=== PATIENT | female | born 1960 | race Caucasian/White ===

== ENCOUNTER 2021-11-27 13:21 | Emergency (ER) | payer MEDICAID ==
--- NOTE | 2021-11-27 13:43 | ED Physician Documentation ---
PD HPI BACK PAIN - Stated complaint Stated Complaint: BACK/EAR/SHOULDER PX - Chief complaint Chief Complaint: General - History obtained from History obtained from: Patient - History of Present Illness Timing - onset: How many months ago (Add thoracolumbar pain since July after fall down stairs. She states she was seen in the ER with normal CT scans, not showing any fractures. She was hospitalized for a week due to electrolyte problems and dehydration from an intestinal problem. Diagnosed with celiac disease. No new injury.) Timing - duration: Months Timing - details: Abrupt onset, Still present, Waxing and waning (worse the past week, same area as prior pains.) Location: Mid, Lower, Right Quality: Pain, Aching. No: Spasm Associated symptoms: No: Fever, Weakness, Numbness Worsened by: Movement, Twisting Contributing factors: Trauma (initially in July 2021, with pain persistent in varying degrees.), Other (moved here from [place] 1 1/2 weeks ago, she is establishing primary care with appt in couple of weeks.) Recently seen: Not recently seen Review of Systems Constitutional: denies: Fever, Chills Eyes: reports: Decreased vision (due to cataracts, no abrupt new change.) Ears: reports: Ear pain (both ears with feeling pressure/pain for several days). denies: Drainage/discharge Nose: reports: Sinus pressure / pain. denies: Rhinorrhea / runny nose Throat: denies: Sore throat Respiratory: denies: Cough GI: denies: Abdominal Pain, Nausea, Vomiting Skin: denies: Rash, Lesions Musculoskeletal: reports: Other (left shoulder pain anterior with ROM. No noted injury. onset a week ago and persists. Feels okay when rested.) PD PAST MEDICAL HISTORY - Past Medical History Cardiovascular: Hypertension, [place] Respiratory: None Neuro: CVA Endocrine/Autoimmune: None HEENT: Other (cataracts and is scheduling for surgery in February. ) - Present Medications Home Medications: Ambulatory Orders Medication Instructions Recorded Confirmed Cetirizine [ZyrTEC] 10 mg PO DAILY 15 Days #15 tablet 11/27/21 Fluticasone Propionate 1 spray NS BID 20 Days #1 bottle 11/27/21 Meloxicam [Mobic] 7.5 mg PO BID 10 Days #20 tablet 11/27/21 oxyCODONE [Roxicodone] 5 mg PO Q6H PRN #15 tablet 11/27/21 - Allergies Allergies/Adverse Reactions: Allergies Allergy/AdvReac Type Severity Reaction Status Date / Time iodine Allergy Anaphylaxis Verified 11/27/21 13:34 shellfish derived Allergy Anaphylaxis Verified 11/27/21 13:34 - Living Situation Living Arrangement: reports: At home PD ED PE NORMAL - Vitals Vital signs reviewed: Yes - General General: Alert and oriented X 3, Well developed/nourished - HEENT HEENT: Atraumatic, Pharynx benign (edentulous without gum swelling/tenderness. ). No: Ears normal (TMs with some fluid behind but not red/inflammed. ) - Neck Neck: Supple, no meningeal sign, No adenopathy - Cardiac Cardiac: RRR, No murmur - Respiratory Respiratory: Clear bilaterally - Abdomen Abdomen: Soft, Non tender - Back Back: No CVA TTP, No spinal TTP, Other (tender right paralumbar at about thoracolumbar level. No rash nor sores. ) - Derm Derm: Normal color, Warm and dry - Extremities Extremities: No edema, Other (left shoulder with mild tenderness anterior. Not tender at AC. SHe has full ROM of the shoulder with pain mostly elicited reaching behind herself (toward back pocket) and abduction to 90 degrees with some resistance (apprehension test). ) - Neuro Neuro: Alert and oriented X 3, No motor deficit, No sensory deficit, Normal speech Results - Vitals Vitals: Vital Signs - 24 hr 11/27/21 11/27/21 13:27 15:33 Temperature 36.7 C Heart Rate 72 60 Respiratory 16 19 Rate Blood Pressure 142/70 H 139/70 H O2 Saturation 100 99 Oxygen O2 Source Room air - Labs Labs: Laboratory Tests 11/27/21 11/27/21 14:35 14:35 WBC 3.1 L RBC 4.46 Hgb 13.2 Hct 40.9 MCV 91.7 MCH 29.6 MCHC 32.3 RDW 12.2 Plt Count 242 MPV 10.3 Neut # (Auto) 1.7 Lymph # (Auto) 0.8 L [place] # (Auto) 0.4 Eos # (Auto) 0.2 Baso # (Auto) 0.1 Absolute Nucleated RBC 0.00 Nucleated RBC % 0.0 Sodium 128 L Potassium 5.0 Chloride 97 L Carbon Dioxide 24 Anion Gap 7.0 BUN 9 Creatinine 0.5 Estimated GFR (MDRD) 125 Glucose 97 Calcium 9.3 Magnesium 2.2 Total Bilirubin 0.7 AST 58 H ALT 69 H Alkaline Phosphatase 147 H Total Protein 7.8 Albumin 4.3 Globulin 3.5 Albumin/Globulin Ratio 1.2 Lipase 28 PD MEDICAL DECISION MAKING - ED course Complexity details: considered differential (Chronic back pain without any new injury nor any red flag neurologic symptoms. She had had prior problems with electrolyte problems and is on diuretic. We can check electrolytes and blood count at this time as well), d/w patient ED course: Here primarily with exacerbation of back pain that she has had since July. While here she also comments on left shoulder pain that is new in the last week and also sinus congestion and ear fullness for the last week or so as well. She is new to the area and setting up primary care states she has had problems with liver enzymes and electrolyte disorder in the past and was wondering about those. We can check those as well. Departure - Departure Disposition: Home, Self Care Clinical Impression: Lumbar back pain, Hyponatremia, Elevated liver enzymes Left shoulder strain Qualifiers: Encounter type: initial encounter Qualified Code(s): S46.912A - Strain of unspecified muscle, fascia and tendon at shoulder and upper arm level, left arm, initial encounter Serous otitis media Qualifiers: Chronicity: acute Laterality: bilateral Recurrence: non-recurrent Qualified Code(s): H65.03 - Acute serous otitis media, bilateral Condition: Stable Record reviewed to determine appropriate education?: Yes Instructions: ED Neck Back Pain General Prescriptions: Fluticasone Propionate 1 spray NS BID 20 Days #1 bottle Meloxicam [Mobic] 7.5 mg PO BID 10 Days #20 tablet oxyCODONE [Roxicodone] 5 mg PO Q6H PRN #15 tablet PRN Reason: Pain Cetirizine [ZyrTEC] 10 mg PO DAILY 15 Days #15 tablet Comments: Shoulder pain sounds likely to be some rotator cuff irritation/tendinitis. Avoid heavy lifting, push pull or overhead reaching with that shoulder. That along with anti-inflammatories should be helpful for it. For your low back, we can add some anti-inflammatories (I wrote a prescription for meloxicam) regularly for the next 7 to 10 days. To that add oxycodone every 6 hours if needed for worse pain. Continue your other usual medications. Ears show fluid behind the eardrums but they do not look acutely infected per se. I would try antihistamines and steroid nasal spray and see if that improves drainage. Your blood test show mildly low sodium level of 128. This is not too bad and I would continue usual medications including your diuretic and follow-up with your new primary care as planned. Your blood tests also showed some mild elevation of the liver enzymes and so would make sense to avoid Tylenol as a pain medicine for now. Follow-up with your primary care. I transmitted needed your prescriptions to [facility] pharmacy. My narcotic instructions I am prescribing a short course of narcotic pain medication for you. These are potentially dangerous and addictive medications that should be used carefully. These medications may constipate you. Take an jmmq-nsr-wfuzbcc stool softener such as docusate twice daily with plenty of water while taking these medica tions. If you go 24 hours without a bowel movement, take prro-fsm-gmqfdwv MiraLAX, per package instructions. Do not drink or drive while taking these medications. If you received narcotic or sedating medications while in the emergency department do not drive for 24 hours. Store this medication in a safe, secure place and out of reach of children. It is a violation of federal law to give or sell this medication to another person or to use in a manner other than prescribed. The ED will not refill narcotic prescriptions, including prescriptions lost or stolen. You can dispose of unwanted medications at the [facility]'s office or at several pharmacies such as [facility]. Discharge Date/Time: 11/27/21 15:35
[2021-11-27] MEDS ORDERED: NAPROXEN 250 MG TABLET PO STA (14:14)
[2021-11-27] MEDS ORDERED: oxyCODONE 5 MG TABLET PO STA (14:14)
[2021-11-27] MEDS ORDERED: DEXAMETHASONE 10 MG/ML VIAL PO STA (14:14)
[2021-11-27] MEDS ORDERED: CHERRY SYRUP 10 ML UDC PO ONE (14:14)
[2021-11-27] MEDS ORDERED: CETIRIZINE 10 MG TABLET PO STA (14:15)
[2021-11-27 14:39] LABS: BASOPHILS # (AUTO) 0.1 10^3/uL (0.0-0.1); BASOPHILS % (AUTO) 1.6 %; EOSINOPHILS # (AUTO) 0.2 10^3/uL (0.0-0.7); EOSINOPHILS % (AUTO) 7.1 %; HCT - HEMATOCRIT 40.9 % (37.0-47.0); HGB - HEMOGLOBIN 13.2 g/dL (12.0-16.0); LYMPHOCYTES # (AUTO) 0.8 10^3/uL (1.5-3.5); LYMPHOCYTES % (AUTO) 24.1 %; MEAN CORPUSCULAR HEMOGLOBIN 29.6 pg (27.0-31.0); MEAN CORPUSCULAR HGB CONC 32.3 g/dL (32.0-36.0); MEAN CORPUSCULAR VOLUME 91.7 fL (81.0-99.0); MEAN PLATELET VOLUME 10.3 fL (7.9-10.8); MONOCYTES # (AUTO) 0.4 10^3/uL (0.0-1.0); MONOCYTES % (AUTO) 11.3 %; NEUTROPHILS # (AUTO) 1.7 10^3/uL (1.5-6.6); NEUTROPHILS % (AUTO) 55.6 %; PLT - PLATELET COUNT 242 10^3/uL (130-450); RED BLOOD COUNT 4.46 10^6/uL (4.20-5.40); RED CELL DISTRIBUTION WIDTH 12.2 % (12.0-15.0); WHITE BLOOD COUNT 3.1 x10^3/uL (4.8-10.8)
[2021-11-27 14:53] LABS: ALBUMIN 4.3 g/dL (3.2-5.5); ALBUMIN/GLOBULIN RATIO 1.2 (1.0-2.2); BILIRUBIN,TOTAL 0.7 mg/dL (0.2-1.0); CALCIUM 9.3 mg/dL (8.5-10.3); CREATININE 0.5 mg/dL (0.4-1.0); MAGNESIUM 2.2 mg/dL (1.7-2.8); TOTAL PROTEIN 7.8 g/dL (6.7-8.2)
[2021-11-27 15:34] VITALS: BP 139/70
== END 2021-11-27 15:35 | disposition home or self-care (01) ==
LOC: ED 13:21
DX: S46.912A Strain of unspecified muscle, fascia and tendon at shoulder and upper arm level, left arm, initial encounter (principal); W19.XXXA Unspecified fall, initial encounter; M54.50 Low back pain, unspecified; M25.512 Pain in left shoulder; G89.29 Other chronic pain; I10 Essential (primary) hypertension; E87.1 Hypo-osmolality and hyponatremia; H65.03 Acute serous otitis media, bilateral
CPT/HCPCS: 36415; 80053; 83690; 83735; 85025; 99282; 99284; A9270

== ENCOUNTER 2021-12-26 11:52 | Emergency (ER) | payer MEDICAID ==
[2021-12-26 12:04] VITALS: BP 130/79
--- OUTSIDE RECORDS SUMMARY | 2021-12-26 12:12 | EXTERNAL MEDICAL SUMMARY RPT | Continuity of Care Document ---
:1960 Author Organization [facility] Address [address] [place] [address] Phone Allergies No information. Encounters No information. Medications No information. Problems date description facility 20211219 fall [facility] 20211219 Shoulder Pain [facility] 20211219 ICU [facility] Results No information.
--- NOTE | 2021-12-26 12:25 | ED Physician Documentation ---
PD HPI UPPER EXT INJURY - Stated complaint Stated Complaint: LT WRIST PX - Chief complaint Chief Complaint: Ext Problem - History obtained from History obtained from: Patient - History of Present Illness Location: Left, Wrist, Hand Type of injury: Fall Timing - onset: How many days ago (6) Timing - duration: Days (6) Timing - details: Abrupt onset, Still present (she states she fell and hurt chest/shoulder and arm. Seen at other ER with head CT, shoulder xray. She states hand not hurting as much then and did not get xrayed. Having worse pain left hand, along with persistent pain shoulder and ribs. 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 : None HEENT: Other (cataracts and is scheduling for surgery in ) Psych: None Musculoskeletal: None Derm: None - Past Surgical History Past Surgical History: No - Present Medications Home Medications: Ambulatory Orders Medication Instructions Recorded Confirmed Cetirizine [ZyrTEC] 10 mg PO DAILY 15 Days #15 tablet 11/27/21 Fluticasone Propionate 1 spray NS BID 20 Days #1 bottle 11/27/21 Meloxicam [Mobic] 7.5 mg PO BID 10 Days #20 tablet 11/27/21 oxyCODONE [Roxicodone] 5 mg PO Q6H PRN #15 tablet 11/27/21 Acetaminophen [Acetaminophen Extra 500 mg PO QID PRN #50 tablet 12/26/21 Strength] oxyCODONE [Roxicodone] 5 mg PO Q6H PRN #18 tablet 12/26/21 - Allergies Allergies/Adverse Reactions: Allergies Allergy/AdvReac Type Severity Reaction Status Date / Time iodine Allergy Anaphylaxis Verified 12/26/21 12:04 shellfish derived Allergy Anaphylaxis Verified 03/21/22 12:04 - Social History Does the pt smoke?: No Smoking Status: Never smoker Does the pt drink ETOH?: No Does the pt have substance abuse?: No - Immunizations Immunizations are current?: Yes PD ED PE NORMAL - Vitals Vital signs reviewed: Yes - General General: Alert and oriented X 3, No acute distress, Well developed/nourished - HEENT HEENT: Atraumatic - Neck Neck: Supple, no meningeal sign, No bony TTP - Derm Derm: Normal color, Warm and dry - Extremities Extremities: Other (wrist and hand with tenderness but no deformity along ulnar side and MC area. Normal color and cap refill in fingers. Has sling for left shoulder. Guarded ROM there. ) - Neuro Neuro: Alert and oriented X 3, No motor deficit, Normal speech Results - Vitals Vitals: Oxygen O2 Source Room air - Rads (name of study) wrist/hand xray Radiology: Prelim report reviewed (no acute fractures. ), See rad report PD MEDICAL DECISION MAKING - ED course Complexity details: reviewed results, considered differential, d/w patient Departure - Departure Disposition: 01 Home, Self Care Clinical Impression: History of recent fall Wrist pain Qualifiers: Laterality: left Qualified Code(s): M25.532 - Pain in left wrist Condition: Stable Record reviewed to determine appropriate education?: Yes Instructions: ED Sprain Wrist Follow-Up: Manoj Willson [Primary Care Provider] - George Kang MD [Provider Admit Priv/Credential] - Prescriptions: Acetaminophen [Acetaminophen Extra Strength] 500 mg PO QID PRN #50 tablet PRN Reason: Pain oxyCODONE [Roxicodone] 5 mg PO Q6H PRN #18 tablet PRN Reason: Pain Comments: No fractures are seen on your x-rays of the hand and wrist. You can still be hurting there from a fall injury and that can be a little swelling related to the sling in position and immobility because of the shoulder fracture. Use the ulnar gutter wrist splint to help protect the wrist and fingers. You can have it off for showering and periodic movement so your fingers and wrist are not as stiff. Follow-up with your primary care this coming Sunday as planned. Follow-up with orthopedics as well. I gave her the phone number for the [place]opedist [place] in [place] Call for an appointment. I did prescribe some more pain medicine as well as the regular acetaminophen. I transmitted those prescriptions to [facility] pharmacy in [place]. I am prescribing a short course of narcotic pain medication for you. These are potentially dangerous and addictive medications that should be used carefully. These medications may constipate you. Take an grpg-svo-mrwqing stool softener such as docusate twice daily with plenty of water while taking these medications. If you go 24 hours without a bowel movement, take hdtd-msg-wuoytbj MiraLAX, per package instructions. Do not drink or drive while taking these medications. If you received narcotic or sedating medications while in the emergency department do not drive for 24 hours. Store this medication in a safe, secure place and out of reach of children. It is a violation of federal law to give or sell this medication to another person or to use in a manner other than prescribed. The ED will not refill narcotic prescriptions, including prescriptions lost or stolen. You can dispose of unwanted medications at the [facility] office or at several pharmacies such as [facility]. Discharge Date/Time: 12/26/21 13:34
[2021-12-26] MEDS ORDERED: oxyCODONE 5 MG TABLET PO STA (12:51)
--- NOTE | 2021-12-26 13:06 | XRAY Report ---
PROCEDURE: Wrist 4 View LT INDICATIONS: Trauma TECHNIQUE: 4 views of the wrist were acquired. COMPARISON: None. FINDINGS: Bones: No acute fractures or dislocations. No suspicious bony lesions. Generalized osteopenia. Scaphoid view: Intact scaphoid. Soft tissues: No suspicious soft tissue calcifications. IMPRESSION: No acute osseous abnormality. If there is clinical concern or persistent symptoms, additional imaging such as repeat radiographs or advanced imaging (e.g. CT, MRI) may be helpful for further evaluation. Reviewed by: Urban Malone MD on 12/26/2021 12:05 PM ANABELLA Approved by: Urban Malone MD on 12/26/2021 12:05 PM ANABELLA Station ID: [id number]
--- NOTE | 2021-12-26 13:07 | XRAY Report ---
PROCEDURE: Hand 3 View LT INDICATIONS: Trauma TECHNIQUE: 3 views of the hand acquired. COMPARISON: None. FINDINGS: Bones: No acute fractures or dislocations. No suspicious bony lesions. Generalized osteopenia. Soft tissues: No suspicious soft tissue calcifications. IMPRESSION: No acute osseous abnormality. If there is clinical concern or persistent symptoms, additional imaging such as repeat radiographs or advanced imaging (e.g. CT, MRI) may be helpful for further evaluation. Reviewed by: Urban Malone MD on 12/26/2021 12:06 PM ANABELLA Approved by: Urban Malone MD on 12/26/2021 12:06 PM ANABELLA Station ID: [id number]
== END 2021-12-26 13:34 | disposition home or self-care (01) ==
LOC: ED 11:52
DX: M25.532 Pain in left wrist (principal); I10 Essential (primary) hypertension
CPT/HCPCS: 73110; 73130; 99282; 99283; A9270

== ENCOUNTER 2022-02-23 14:32 | Emergency (ER) | payer MEDICAID ==
--- OUTSIDE RECORDS SUMMARY | 2022-02-23 15:12 | EXTERNAL MEDICAL SUMMARY RPT | Continuity of Care Document ---
:1960 Author Organization [facility] Address [address] [place] [address] Phone Allergies No information. Encounters No information. Medications No information. Problems date description facility 20211219 fall [facility] 20211219 Shoulder Pain [facility] 20211219 ICU [facility] Results No information.
[2022-02-23] MEDS ORDERED: MORPHINE 2 MG/ML CARPUJECT IVP STA (15:20)
--- NOTE | 2022-02-23 15:21 | ED Physician Documentation ---
History of Present Illness - Stated complaint Stated Complaint: GLF - Chief complaint Chief Complaint: Trauma Abd - History obtained from History obtained from: Patient, Friend - Additonal information Additional information: 61-year-old woman on anticoagulation had a trip and fall last night in her bedroom and fell and hit her left ribs on a piece of furniture. She has severe left rib pain and also some left upper quadrant and back pain. She is 100% sure she did not hit her head. Pain is severe. 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 : None HEENT: Other (cataracts and is scheduling for surgery in ) Psych: None Musculoskeletal: None Derm: None - Past Surgical History Past Surgical History: No - Present Medications Home Medications: Ambulatory Orders Medication Instructions Recorded Confirmed Cetirizine [ZyrTEC] 10 mg PO DAILY 15 Days #15 tablet 11/27/21 Fluticasone Propionate 1 spray NS BID 20 Days #1 bottle 11/27/21 Meloxicam [Mobic] 7.5 mg PO BID 10 Days #20 tablet 11/27/21 oxyCODONE [Roxicodone] 5 mg PO Q6H PRN #15 tablet 11/27/21 Acetaminophen [Acetaminophen Extra 500 mg PO QID PRN #50 tablet 12/26/21 Strength] oxyCODONE [Roxicodone] 5 mg PO Q6H PRN #18 tablet 12/26/21 HYDROcod/ACETAM 5/325 [[place] 5/325] 1 - 2 tab PO Q6H PRN #15 tablet 02/23/22 - Allergies Allergies/Adverse Reactions: Allergies Allergy/AdvReac Type Severity Reaction Status Date / Time dupilumab [From [employer]Fares Pen] Allergy Hallucinati Verified 02/23/22 15:03 ons iodine Allergy Anaphylaxis Verified 02/23/22 15:03 shellfish derived Allergy Anaphylaxis Verified 02/23/22 15:03 - Social History Does the pt smoke?: No Smoking Status: Never smoker Does the pt drink ETOH?: No Does the pt have substance abuse?: No - Immunizations Immunizations are current?: Yes PD ED PE NORMAL - Vitals Vital signs reviewed: Yes - General General: Alert and oriented X 3, Other (She appears uncomfortable with position changes and deep breathing.) - HEENT HEENT: PERRL, EOMI - Neck Neck: Supple, no meningeal sign, No bony TTP - Cardiac Cardiac: RRR, No murmur - Respiratory Respiratory: No respiratory distress, Clear bilaterally, Other (Tender left lateral mid chest wall) - Abdomen Abdomen: Normal bowel sounds, Soft, Other (Very mild left upper quadrant tenderness) - Back Back: No CVA TTP, No spinal TTP (No midline spinal tenderness) - Derm Derm: Normal color, Warm and dry - Extremities Extremities: No edema, No calf tenderness / cord - Neuro Neuro: Alert and oriented X 3, Normal speech Results - Vitals Vitals: Vital Signs - 24 hr 02/23/22 02/23/22 02/23/22 14:55 15:28 16:30 Temperature 36.4 C L Heart Rate 85 81 Respiratory 14 14 14 Rate Blood Pressure 131/71 H 130/75 O2 Saturation 98 98 Oxygen O2 Source Room air - Labs Labs: Laboratory Tests 02/23/22 02/23/22 16:39 16:39 WBC 3.3 L RBC 4.04 L Hgb 12.6 Hct 37.2 MCV 92.1 MCH 31.2 H MCHC 33.9 RDW 14.7 Plt Count 181 MPV 9.0 Neut # (Auto) 2.1 Lymph # (Auto) 0.7 L [place] # (Auto) 0.5 Eos # (Auto) 0.1 Baso # (Auto) 0.0 Absolute Nucleated RBC 0.00 Nucleated RBC % 0.0 Sodium 129 L Potassium 4.4 Chloride 92 L Carbon Dioxide 25 Anion Gap 12.0 BUN 13 Creatinine 0.5 Estimated GFR (MDRD) 125 Glucose 115 H Calcium 8.9 Total Bilirubin 1.0 AST 41 ALT 43 Alkaline Phosphatase 129 H Total Protein 7.5 Albumin 4.5 Globulin 3.0 Albumin/Globulin Ratio 1.5 - Rads (name of study) CT abdomen and pelvis shows age-indeterminate superior endplate compressions of L1, L3, L5 and L4 with DDD Radiology: EMP read contemporaneously CT of the chest without contrast demonstrates no rib fractures, incidental findings Radiology: EMP read contemporaneously PD MEDICAL DECISION MAKING - ED course ED course: 61-year-old woman with multiple comorbidities fell last night and injured her left chest wall. Also some mild abdominal pain with it. CT scanning was negative for acute findings, we discussed the incidental findings of the lumbar compression fractures but she is not particularly tender there, her back pain is higher. She been on oxycodone in the past but prefers something with less side effects and we settled on hydrocodone. I am prescribing a short course of short-acting opioid pain medication for this patient. 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 I have discussed that the opioids are for short term therapy only, and will not be refilled from the ED.. Departure - Departure Disposition: 01 Home, Self Care Clinical Impression: Chest wall contusion, Abdominal contusion Condition: Good Record reviewed to determine appropriate education?: Yes Instructions: ED Contusion Rib Prescriptions: HYDROcod/ACETAM 5/325 [[place] 5/325] 1 - 2 tab PO Q6H PRN #15 tablet PRN Reason: Pain Comments: I sent your prescription electronically to [facility] in [place]. As discussed the CT scans did not show any rib fracture. You do have multiple lumbar compression fractures but the radiologist was not convinced that these were acute. Lab work shows chronic low sodium at 129 but it looks like this is where you have been in the past. Your potassium level was fine. Call your doctor to arrange a follow-up appointment, make the next available appointment. In the interim, return anytime if worse or if new symptoms develop. I am prescribing a short course of narcotic pain medication for you. These are potentially dangerous and addictive medications that should be used carefully. These medications may constipate you. Take an sxhc-dxd-ulimpgy stool softener (docusate) twice daily with plenty of water while taking these medications. If you go 24 hours without a bowel movement, take iiiv-pzz-kxbyhav miralax, per package instructions. Do not drink or drive while taking these medications. If you received narcotic or sedating medications while in the emergency department, do not drive for 24 hours. Store this medication in a safe, secure place and out of reach of children. It is a violation of federal law to give or sell this medication to another person or to use in a manner other than prescribed. The ED will not refill narcotic prescriptions, including prescriptions lost or stolen. To dispose of unwanted medications: 1. [facility] at [address] in [place] has a medication drop box. They accept prescription medications (in pill form) Sunday through Sunday 9:00 a.m. to 5:00 p.m. 2. The [facility] accepts prescription medications (in pill form only) for disposal year round. Call for more information. 3. Contact the [facility] for the next [facility] sponsored prescription drug collection event. , [phone], or [phone]; Note that many narcotic pain relievers also contain Tylenol/acetaminophen. Please ensure that your total dose of acetaminophen from all sources does not e xceed 3 g (3000 mg) per day.
--- NOTE | 2022-02-23 16:40 | CT Report ---
PROCEDURE: Abdomen/Pelvis WO INDICATIONS: cHEST / aBD INJURY TECHNIQUE: Noncontrast 5 mm thick sections acquired from the diaphragms to the symphysis. 5 mm coronal and sagi ttal reformats were then performed. For radiation dose reduction, the following was used: automated exposure control, adjustment of mA and/or kV according to patient size. COMPARISON: None. FINDINGS: Image quality: Excellent. ABDOMEN: Lung bases: Mild bibasilar dependent atelectasis is seen. Heart size is enlarged. Pacemaker leads are seen in right atrium and right ventricle. Median sternotomy wires are also seen. No pericardial effu joby. Solid organs: Liver and spleen are normal in size. Gallbladder is surgically absent Pancreas is no rmal in contours. No adrenal nodules. Kidneys are normal in size, without hydronephrosis or nephrol ithiasis. Peritoneum and bowel: Unenhanced bowel loops demonstrate normal wall thickness and caliber. No free fluid or air. Mild fecal stasis in the colon is seen. Nodes and vessels: No retroperitoneal or mesenteric adenopathy by size criteria. Aorta and inferior vena cava are normal in caliber. Mild atherosclerotic calcifications in the abdominal aorta is seen . Miscellaneous: No ventral hernias. PELVIS: Genitourinary: Bladder wall thickness is normal. Miscellaneous: No inguinal hernias or adenopathy. Uterus and bilateral ovaries show no gross abnorm ality. Bones: No suspicious bony lesions. Age indeterminant compression deformity involving superior endpla te of L4 vertebral body is seen with up to 40% loss of L4 vertebral body height. Mild superior endpla te compression deformity at L1, L3 and L5 levels are also seen. Degenerative endplate changes and los s of disc height throughout lower thoracic and lumbar spine is seen. IMPRESSION: 1. Age-indeterminate superior endplate compression deformities at L1, L3 and L5 levels and age indete rminant anterior wedge compression deformity at L4 level as above. Degenerative disc disease througho ut lumbar spine. No other fracture or dislocation is seen in abdomen or pelvis. 2. No acute solid organ injury is seen in abdomen or pelvis. No free fluid of free air. Mild constipa tion. 3. Prior cholecystectomy. Reviewed by: Usama Iraheta MD on 02/23/2022 4:38 PM PDT Approved by: Usama Iraheta MD on 02/23/2022 4:38 PM PDT Station ID: [id number]
--- NOTE | 2022-02-23 16:44 | CT Report ---
PROCEDURE: CHEST WO INDICATIONS: cHEST / aBD INJURY TECHNIQUE: Noncontrast 1mm axial images were acquired from the pulmonary apices to the posterior costophrenic an gles. Axial 5 mm soft tissue kernel reconstructions were performed as well as 8 mm axial MIP and cor onal and sagittal 5 mm reformations. For radiation dose reduction, the following was used: automate d exposure control, adjustment of mA and/or kV according to patient size. COMPARISON: None. FINDINGS: Image quality: Excellent. Lungs and pleura: No acute air space opacities. No pleural effusions or pneumothorax. Central and peripheral airways are patent and normal in caliber. Mediastinum: Median sternotomy wires are seen. Left chest wall pacemaker is seen, the leads are in t he of right atrium and right ventricle. Heart size is enlarged. No pericardial effusion. No mediast inal adenopathy by size criteria. Thoracic aorta and central pulmonary arteries are normal in size. Jgzy-el-wkjpyfof atherosclerotic disease is seen. Esophagus is normal in caliber. No hiatal hernia. Bones and chest wall: No suspicious bony lesions. No gross displaced rib fracture is seen. No acute vertebral body compression fractures. Degenerative disc disease throughout thoracic spine is seen. No axillary or supraclavicular adenopathy by size criteria. The thyroid is normal in size and there are no incidental findings. Abdomen: Visualized upper abdominal solid organs and bowel loops appear normal in the absence of con trast. IMPRESSION: 1. No mediastinal hematoma or lymphadenopathy. Cardiomegaly, no pericardial effusion. Pacemaker leads in place. Prior cardiac surgery. 2. Bilateral lungs are clear. Airway is patent. 3. No gross acute rib fracture. No gross acute compression fracture or spondylolisthesis in thoracic spine. CLINICAL RECOMMENDATION STATEMENTS: In patients <35 years with an ITN detected on CT, MRI, or extrathyroidal ultrasound, the Committee re commends further evaluation with dedicated thyroid ultrasound if the nodule is "e1 cm and has no susp icious imaging features, and if the patient has normal life expectancy. In patients "e35 years with an ITN detected on CT, MRI, or extrathyroidal ultrasound, the Committee r ecommends further evaluation with dedicated thyroid ultrasound if the nodule is "e1.5 cm and has no s uspicious imaging features, and if the patient has normal life expectancy. (ACR, 2014) Reviewed by: Usama Iraheta MD on 02/23/2022 4:42 PM PDT Approved by: Usama Iraheta MD on 02/23/2022 4:42 PM PDT Station ID: [id number]
[2022-02-23 16:47] LABS: BASOPHILS % (AUTO) 0.9 %; EOSINOPHILS # (AUTO) 0.1 10^3/uL (0.0-0.7); EOSINOPHILS % (AUTO) 1.8 %; HCT - HEMATOCRIT 37.2 % (37.0-47.0); HGB - HEMOGLOBIN 12.6 g/dL (12.0-16.0); LYMPHOCYTES # (AUTO) 0.7 10^3/uL (1.5-3.5); MEAN CORPUSCULAR HEMOGLOBIN 31.2 pg (27.0-31.0); MEAN CORPUSCULAR HGB CONC 33.9 g/dL (32.0-36.0); MEAN CORPUSCULAR VOLUME 92.1 fL (81.0-99.0); MONOCYTES # (AUTO) 0.5 10^3/uL (0.0-1.0); MONOCYTES % (AUTO) 13.9 %; NEUTROPHILS # (AUTO) 2.1 10^3/uL (1.5-6.6); NEUTROPHILS % (AUTO) 63.1 %; PLT - PLATELET COUNT 181 10^3/uL (130-450); RED BLOOD COUNT 4.04 10^6/uL (4.20-5.40); RED CELL DISTRIBUTION WIDTH 14.7 % (12.0-15.0); WHITE BLOOD COUNT 3.3 x10^3/uL (4.8-10.8)
[2022-02-23 16:58] LABS: ALBUMIN 4.5 g/dL (3.2-5.5); ALBUMIN/GLOBULIN RATIO 1.5 (1.0-2.2); CALCIUM 8.9 mg/dL (8.5-10.3); CREATININE 0.5 mg/dL (0.4-1.0); POTASSIUM 4.4 mmol/L (3.5-5.0); TOTAL PROTEIN 7.5 g/dL (6.7-8.2)
[2022-02-23 17:51] VITALS: BP 125/77
== END 2022-02-23 17:51 | disposition home or self-care (01) ==
LOC: ED 14:32
DX: S20.212A Contusion of left front wall of thorax, initial encounter (principal); S30.1XXA Contusion of abdominal wall, initial encounter; W01.190A Fall on same level from slipping, tripping and stumbling with subsequent striking against furniture, initial encounter; Y93.89 Activity, other specified; Y92.003 Bedroom of unspecified non-institutional (private) residence as the place of occurrence of the external cause; Z79.01 Long term (current) use of anticoagulants
CPT/HCPCS: 36415; 80053; 85025; 96374; 99283

== ENCOUNTER 2022-03-15 11:17 | Outpatient (CLI) | payer MEDICAID ==
--- NOTE | 2022-03-15 15:24 | XRAY Report ---
PROCEDURE: Lumbar Spine 2 View INDICATIONS: DORSOPATHY TECHNIQUE: 2 views of the lumbar spine were acquired. COMPARISON: CT abdomen and pelvis dated 02/23/2022. FINDINGS: Bones: 5 [id number]-czpgmkx vertebrae are present. Mild to moderate levocurvature is centered at T11-T1 2. Numerous compression fractures, as previously noted on the recent CT, involving L1, L2, L3, and L4 . These are grossly unchanged. No suspicious bony lesions. Soft tissues: Overlying bowel gas pattern is normal. No suspicious soft tissue calcifications. IMPRESSION: Numerous unchanged lumbar compression fractures. Consider severe benign osteoporosis. Ca nnot exclude underlying process such as multiple myeloma. Reviewed by: Rei Wilson MD on 03/15/2022 3:23 PM PDT Approved by: Rei Wilson MD on 03/15/2022 3:23 PM PDT Station ID: [id number]
--- NOTE | 2022-03-16 09:05 | XRAY Report ---
PROCEDURE: Cervical Spine 2 View INDICATIONS: Neck pain TECHNIQUE: 3 view(s) of the cervical spine were acquired. COMPARISON: None. FINDINGS: Normal cervical spine vertebral body height and alignment. No significant disc height loss or degener ative endplate changes. There is mild facet and uncovertebral hypertrophy in the upper and mid cervic al spine from C3-C4 through C5-C6. IMPRESSION: Mild facet and uncovertebral hypertrophy. Consider MRI for further evaluation. Reviewed by: Smooth Irvin MD on 03/16/2022 9:04 AM PDT Approved by: Smooth Irvin MD on 03/16/2022 9:04 AM PDT Station ID: [id number]
== END 2022-03-15 11:18 | disposition home or self-care (01) ==
LOC: DI 11:17
PROVIDERS: ATTEND Family Medicine
DX: M47.812 Spondylosis without myelopathy or radiculopathy, cervical region (principal); M48.56XD Collapsed vertebra, not elsewhere classified, lumbar region, subsequent encounter for fracture with routine healing

== ENCOUNTER 2022-04-18 08:00 | Outpatient (CLI) | payer MEDICAID ==
--- NOTE | 2022-04-18 13:40 | XRAY Report ---
PROCEDURE: Shoulder 3 View LT INDICATIONS: SHOULDER FX TECHNIQUE: 2 views of the shoulder were acquired. COMPARISON: Left shoulder radiographs 01/11/2022. FINDINGS: Bones: Progressive healing changes are seen involving the impacted proximal humeral head and neck fra cture. The alignment does not appear significantly changed when compared to the radiographs from 2021. Healing left-sided rib fractures are present. No suspicious bony lesions. Soft tissues: No suspicious soft tissue calcifications. A cardiac pacemaker is seen with pulse gene rator in the left chest. IMPRESSION: Progressive healing changes involving the previously seen proximal humeral fracture with decreased prominence of the fracture line. Healing left-sided rib fractures also noted. Reviewed by: Urban Malone MD on 04/18/2022 1:38 PM PDT Approved by: Urban Malone MD on 04/18/2022 1:38 PM PDT Station ID: [id number]
== END 2022-04-18 23:59 | disposition home or self-care (01) ==
LOC: DI.WOS 08:00
PROVIDERS: ATTEND Orthopaedic Surgery
DX: S42.222D 2-part displaced fracture of surgical neck of left humerus, subsequent encounter for fracture with routine healing (principal); S22.42XD Multiple fractures of ribs, left side, subsequent encounter for fracture with routine healing

== ENCOUNTER 2022-06-15 14:27 | Outpatient (CLI) | payer MEDICAID ==
--- NOTE | 2022-06-16 08:26 | XRAY Report ---
PROCEDURE: Shoulder 2 View LT INDICATIONS: 2 PART DISPLACED FX TECHNIQUE: 2 views of the shoulder were acquired. COMPARISON: Left shoulder radiographs 04/18/2022. FINDINGS: Bones: Similar alignment and appearance of the previously demonstrated impacted proximal humeral hea d and neck fracture. No dislocations. No suspicious bony lesions. Nonacute left rib fractures redemo nstrated. Soft tissues: No suspicious soft tissue calcifications. Left chest pacemaker and leads present as b efore. IMPRESSION: Similar alignment and appearance of the previously demonstrated impacted proximal humeral head and ne ck fracture. Reviewed by: Urban Torres MD on 06/16/2022 8:25 AM PDT Approved by: Urban Torres MD on 06/16/2022 8:25 AM PDT Station ID: [id number]
== END 2022-06-15 14:28 | disposition home or self-care (01) ==
LOC: DI 14:27
PROVIDERS: ATTEND Physician Assistant Surgical
DX: S42.222D 2-part displaced fracture of surgical neck of left humerus, subsequent encounter for fracture with routine healing (principal)

== ENCOUNTER 2022-07-13 08:00 | Outpatient (CLI) | payer MEDICAID ==
--- NOTE | 2022-07-13 16:28 | XRAY Report ---
PROCEDURE: Humerus RT INDICATIONS: RIGHT ARM PAIN TECHNIQUE: 2 views of the humerus were acquired. COMPARISON: None FINDINGS: Bones: No fractures or dislocations. No suspicious bony lesions. Generalized decreased osseous min eralization present. Soft tissues: No suspicious soft tissue calcifications. IMPRESSION: Osteopenia without fracture or foreign body Reviewed by: Kamron Galvan MD on 07/13/2022 3:27 PM [facility] Approved by: Kamron Galvan MD on 07/13/2022 3:27 PM [facility] Station ID: [id number]
== END 2022-07-13 23:59 | disposition home or self-care (01) ==
LOC: DI.N 08:00
PROVIDERS: ATTEND Physician Assistant Medical
DX: M79.601 Pain in right arm (principal); M85.821 Other specified disorders of bone density and structure, right upper arm

== ENCOUNTER 2022-08-02 13:27 | Emergency (ER) | payer MEDICAID ==
[2022-08-02 13:49] VITALS: BP 132/79
--- NOTE | 2022-08-02 14:12 | ED Physician Documentation ---
History of Present Illness - Stated complaint Stated Complaint: NECK PX/RT ARM PX - Chief complaint Chief Complaint: Ext Problem - History obtained from History obtained from: Patient - Additonal information Additional information: 61-year-old woman with a lot of bone and joint problems presents with right shoulder pain that has been ongoing for maybe a month and a half. It may have started after her Prolia shot for osteoporosis, but she has not had other new joint problems but has ongoing left shoulder pain from her fracture back in December. The pain is across the collarbone, into the glenohumeral joint and radiates down to the elbow. There is also some neck pain associated with it. It comes in waves and when it is severe it is terrible. She does take chronically oxycodone which she gets from her physician. She had an x-ray done in the clinic which showed osteopenia but no other abnormalities. Review of Systems Constitutional: denies: Fever, Chills Cardiac: denies: Chest pain / pressure, Palpitations Respiratory: denies: Dyspnea, Cough PD PAST MEDICAL HISTORY - Past Medical History Past Medical History: Yes Cardiovascular: Hypertension, [place] Respiratory: None Neuro: CVA Endocrine/Autoimmune: None GI: None VARNISHER: None : None HEENT: Other Psych: None Musculoskeletal: None Derm: None - Past Surgical History Past Surgical History: No General: Cholecystectomy /VARNISHER: Tubal ligation Cardiovascular: Coronary stent, Valve replacement, AICD - Present Medications Home Medications: Ambulatory Orders Medication Instructions Recorded Confirmed Cetirizine [ZyrTEC] 10 mg PO DAILY 15 Days #15 tablet 11/27/21 Fluticasone Propionate 1 spray NS BID 20 Days #1 bottle 11/27/21 Meloxicam [Mobic] 7.5 mg PO BID 10 Days #20 tablet 11/27/21 oxyCODONE [Roxicodone] 5 mg PO Q6H PRN #15 tablet 11/27/21 Acetaminophen [Acetaminophen Extra 500 mg PO QID PRN #50 tablet 12/26/21 Strength] oxyCODONE [Roxicodone] 5 mg PO Q6H PRN #18 tablet 12/26/21 HYDROcod/ACETAM 5/325 [[place] 5/325] 1 - 2 tab PO Q6H PRN #15 tablet 02/23/22 Gabapentin [Neurontin] 300 mg PO TID #60 cap 08/02/22 Ondansetron Odt [Zofran] 4 mg TL Q6H PRN #30 tablet 08/02/22 - Allergies Allergies/Adverse Reactions: Allergies Allergy/AdvReac Type Severity Reaction Status Date / Time dupilumab [From Dupixent Pen] Allergy Hallucinati Verified 08/02/22 13:50 ons iodine Allergy Anaphylaxis Verified 08/02/22 13:50 shellfish derived Allergy Anaphylaxis Verified 08/02/22 13:50 spironolactone Allergy Unknown Verified 08/02/22 13:50 - Social History Does the pt smoke?: No Smoking Status: Never smoker Does the pt drink ETOH?: No Does the pt have substance abuse?: No - Immunizations Immunizations are current?: Yes PD ED PE NORMAL - Vitals Vital signs reviewed: Yes - General General: Alert and oriented X 3, No acute distress - HEENT HEENT: PERRL, EOMI - Neck Neck: Supple, no meningeal sign, No bony TTP - Cardiac Cardiac: RRR, No murmur - Respiratory Respiratory: No respiratory distress, Clear bilaterally - Back Back: No CVA TTP, No spinal TTP - Derm Derm: Normal color, Warm and dry - Extremities Extremities: Other (She has some limited range of motion of the right shoulder, internal and external rotation seems relatively painless, but abduction is painful. There is no significant tenderness over the shoulder itself nor the collarbone. She has some mild neck tenderness.) - Neuro Neuro: Alert and oriented X 3, Normal speech, Other (She is equal bilateral club lounge attendant strength, thumb extension, interosseous strength, and flexion extension of the wrist.) Results - Vitals Vitals: Vital Signs - 24 hr 08/02/22 13:44 Temperature 36.6 C Heart Rate 62 Respiratory 16 Rate Blood Pressure 132/79 H O2 Saturation 100 Oxygen O2 Source Room air PD MEDICAL DECISION MAKING - ED course ED course: 61-year-old woman with nonemergent but severe right shoulder pain of a month and a half duration, already had x-rays. She cannot have an MRI due to her pacemaker, but actually is scheduled to have a pacemaker replacement in the next couple of months to an MRI compatible 1. In the meantime we will treat with gabapentin as this seems to have some nerve pain component and she needed a refill of her chronic ondansetron. Departure - Departure Disposition: 01 Home, Self Care Clinical Impression: Shoulder pain, right Qualifiers: Chronicity: acute Qualified Code(s): M25.511 - Pain in right shoulder Condition: Good Record reviewed to determine appropriate education?: Yes Instructions: ED Shoulder Pain [facility] Prescriptions: Gabapentin [Neurontin] 300 mg PO TID #60 cap Ondansetron Odt [Zofran] 4 mg TL Q6H PRN #30 tablet PRN Reason: Nausea / Vomiting Comments: I sent your prescriptions electronically to [facility] [place] Return for new/worse symptoms. Followup with your primary care physician and orthopedist.
== END 2022-08-02 14:38 | disposition home or self-care (01) ==
LOC: ED 13:27
DX: M25.511 Pain in right shoulder (principal); Z79.891 Long term (current) use of opiate analgesic; I10 Essential (primary) hypertension
CPT/HCPCS: 99282

== ENCOUNTER 2022-09-02 14:58 | Emergency (ER) | payer MEDICAID ==
--- NOTE | 2022-09-02 16:33 | XRAY Report ---
PROCEDURE: Chest 2 View X-Ray INDICATIONS: cough TECHNIQUE: 2 views of the chest were acquired. COMPARISON: Correlation is made with prior chest CT, 02/23/2022 FINDINGS: Surgical changes and devices: An AICD can be seen. Sternotomy wires and mitral valve annulus prosthe sis can be seen. Cholecystectomy clips are seen. Lungs and pleura: No pleural effusions or pneumothorax. Lungs are clear. Mediastinum: Mediastinal contours are normal. Heart size is normal. Bones and chest wall: No suspicious bony abnormalities. Age-appropriate degenerative changes are see n. Mild levoconvex scoliotic curvature is seen. Soft tissues appear unremarkable. IMPRESSION: Clear lungs, without infiltrates. Postoperative and degenerative changes are seen. Reviewed by: Isaias Kenney MD on 09/02/2022 3:32 PM [facility] Approved by: Isaias Kenney MD on 09/02/2022 3:32 PM [facility] Station ID: [id number]
--- NOTE | 2022-09-02 16:59 | ED Physician Documentation ---
PD HPI URI - Stated complaint Stated Complaint: FLU LIKE SYMPTOMS - Chief complaint Chief Complaint: Resp - History obtained from History obtained from: Patient - History of Present Illness Timing - onset: How many days ago (4-5) Timing duration: Days (4-5) Timing details: Gradual onset, Still present Associated symptoms: Fever, Chills, Dry cough, Dyspnea (with increased wheezing c/w asthma the past 2 days.). No: Chest pain, Bilateral edema Contributing factors: Sick contact (family memebers with Influenza.), COPD / asthma. No: Immunocompromised Improves by: Rest, MDI/nebulizer Worsened by: Activity, Other (coughing) Similar symptoms before: Has not had sx before Review of Systems Constitutional: reports: Fever, Chills, Myalgias Nose: reports: Congestion. denies: Rhinorrhea / runny nose Throat: denies: Sore throat Cardiac: reports: Chest pain / pressure Respiratory: reports: Dyspnea, Cough, Wheezing GI: reports: Nausea, Diarrhea. denies: Abdominal Pain, Vomiting Skin: denies: Rash, Lesions Neurologic: reports: Generalized weakness. 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 : None HEENT: Other Psych: None Musculoskeletal: None Derm: None - Past Surgical History Past Surgical History: No General: Cholecystectomy /SPINNING FRAME CHANGER: Tubal ligation Cardiovascular: Coronary stent, Valve replacement, AICD - Present Medications Home Medications: Ambulatory Orders Medication Instructions Recorded Confirmed Cetirizine [ZyrTEC] 10 mg PO DAILY 15 Days #15 tablet 11/27/21 Fluticasone Propionate 1 spray NS BID 20 Days #1 bottle 11/27/21 Meloxicam [Mobic] 7.5 mg PO BID 10 Days #20 tablet 11/27/21 oxyCODONE [Roxicodone] 5 mg PO Q6H PRN #15 tablet 11/27/21 Acetaminophen [Acetaminophen Extra 500 mg PO QID PRN #50 tablet 12/26/21 Strength] oxyCODONE [Roxicodone] 5 mg PO Q6H PRN #18 tablet 12/26/21 HYDROcod/ACETAM 5/325 [[place] 5/325] 1 - 2 tab PO Q6H PRN #15 tablet 02/23/22 Gabapentin [Neurontin] 300 mg PO TID #60 cap 08/02/22 Ondansetron Odt [Zofran] 4 mg TL Q6H PRN #30 tablet 08/02/22 Benzonatate [Tessalon] 100 mg PO TID PRN #20 cap 09/02/22 Ipratropium [Atrovent] 0.5 mg INH TID 10 Days #75 ml 09/02/22 dexAMETHasone [Decadron] 4 mg PO DAILY #7 tablet 09/02/22 - Allergies Allergies/Adverse Reactions: Allergies Allergy/AdvReac Type Severity Reaction Status Date / Time dupilumab [From Dupixent Pen] Allergy Hallucinati Verified 08/02/22 13:50 ons iodine Allergy Anaphylaxis Verified 08/02/22 13:50 shellfish derived Allergy Anaphylaxis Verified 08/02/22 13:50 spironolactone Allergy Unknown Verified 08/02/22 13:50 - Social History Does the pt smoke?: No Smoking Status: Never smoker Does the pt drink ETOH?: No Does the pt have substance abuse?: No - Immunizations Immunizations are current?: Yes PD ED PE NORMAL - Vitals Vital signs reviewed: Yes - General General: Alert and oriented X 3, No acute distress, Well developed/nourished - HEENT HEENT: Ears normal, Moist mucous membranes, Pharynx benign - Neck Neck: Supple, no meningeal sign, No adenopathy - Cardiac Cardiac: RRR, No murmur - Respiratory Respiratory: Other (no coarse sounds on exam. ). No: Clear bilaterally (diffuse mild exp wheezing. No accessory muscle use nor retractions. Able to talk sentences. ) - Abdomen Abdomen: Soft, Non tender Results - Vitals Vitals: Vital Signs - 24 hr 09/02/22 09/02/22 09/02/22 15:29 17:04 17:34 Temperature 37.0 C Heart Rate 72 70 68 Respiratory 18 18 16 Rate Blood Pressure 115/64 133/74 H O2 Saturation 99 99 09/02/22 18:26 Temperature Heart Rate 78 Respiratory 18 Rate Blood Pressure 116/71 O2 Saturation 97 Oxygen O2 Source Room air - Labs Labs: Laboratory Tests 09/02/22 09/02/22 15:33 17:25 Sodium 134 L Potassium 5.0 Chloride 98 L Carbon Dioxide 28 Anion Gap 8.0 BUN 10 Creatinine 0.7 Estimated GFR (MDRD) 85 L Glucose 98 Calcium 9.6 Magnesium 2.0 Nasal Adenovirus (PCR) NOT DETECTED Nasal B. parapertussis DNA (PCR) NOT DETECTED Nasal Coronavir 229E PCR NOT DETECTED Nasal Coronavir HKU1 PCR NOT DETECTED Nasal Coronavir NL63 PCR NOT DETECTED Nasal Coronavir OC43 PCR NOT DETECTED Nasal Enterovir/Rhinovir PCR NOT DETECTED Nasal Influenza A H3 PCR DETECTED A Nasal Influenza B PCR NOT DETECTED Nasal Parainfluen 1 PCR NOT DETECTED Nasal Parainfluen 2 PCR NOT DETECTED Nasal Parainfluen 3 PCR NOT DETECTED Nasal Parainfluen 4 PCR NOT DETECTED Nasal RSV (PCR) NOT DETECTED Nasal B.pertussis DNA PCR NOT DETECTED Nasal C.pneumoniae (PCR) NOT DETECTED Maxime Human Metapneumo PCR NOT DETECTED Nasal M.pneumoniae (PCR) NOT DETECTED Nasal SARS-CoV-2 (PCR) NOT DETECTED - Rads (name of study) chest xray Radiology: Prelim report reviewed (clear lungs, without infiltrates.), See rad report PD MEDICAL DECISION MAKING - ED course Complexity details: re-evaluated patient (she states better relief with dfuoneb compared to just albuterol at home. ), considered differential (could be influenza like her family members. Is having exacerbate her asthma. ), d/w patient Departure - Departure Disposition: 01 Home, Self Care Clinical Impression: Influenza A, Exacerbation of asthma, Dyspnea Condition: Stable Record reviewed to determine appropriate education?: Yes Instructions: Asthma Dc, ED Flu Follow-Up: Manoj Willson MD [Primary Care Provider] - Prescriptions: Ipratropium [Atrovent] 0.5 mg INH TID 10 Days #75 ml dexAMETHasone [Decadron] 4 mg PO DAILY #7 tablet Benzonatate [Tessalon] 100 mg PO TID PRN #20 cap PRN Reason: Cough Comments: Your viral panel PCR test is positive for influenza A. Negative for other chele rning viruses. Your chest x-ray is clear without any signs of pneumonia. Your chemistry panel blood test shows normal magnesium potassium and sodium. You have had illness now long enough with the influenza that he would not really benefit from antiviral medicine per se. We would focus mainly on improving the symptoms and the exacerbation of asthma that has come with it. Continue your albuterol nebulizer treatments 3-4 times a day. To that add ipratropium 3-4 times daily and see if that helps better with your breathing. This is the combination that we gave you here. Also Decadron steroid and anti-inflammatory daily for the next 5 days. Tylenol every 4-6 hours if needed for fevers or pains. Add benzonatate/Tessalon if needed for cough. I sent your prescriptions to [facility] in [place]. Follow-up with your primary if not improved well over the next several days and return sooner if worsening. Discharge Date/Time: 09/02/22 18:26
[2022-09-02] MEDS ORDERED: DEXAMETHASONE 10 MG/ML VIAL PO STA (17:18)
[2022-09-02] MEDS ORDERED: CHERRY SYRUP 10 ML UDC PO ONE (17:18)
[2022-09-02] MEDS ORDERED: BENZONATATE 100 MG CAPSULE PO STA (17:18)
[2022-09-02] MEDS ORDERED: IPRATROPIUM/ALBUTEROL 3 ML NEB INH STA (17:18)
[2022-09-02 17:24] LABS: B. PARAPERTUSSIS- RESP PCR PAN NOT DETECTED; B. PERTUSSIS- RESP PCR PANEL NOT DETECTED; C. PNEUMONIAE- RESP PCR PANEL NOT DETECTED; CORONAVIRUS 229E-RESP PCR NOT DETECTED; CORONAVIRUS HKU1-RESP PCR NOT DETECTED; CORONAVIRUS NL63-RESP PCR NOT DETECTED; CORONAVIRUS OC43-RESP PCR NOT DETECTED; HUMAN METAPNEUMOVIRUS NOT DETECTED; INFLUENZA A H3- RESP PCR PANEL DETECTED; INFLUENZA B - RESP PCR PANEL NOT DETECTED; M. PNEUMONIAE- RESP PCR PANEL NOT DETECTED; PARAINFLUENZA VIRUS 1 NOT DETECTED; PARAINFLUENZA VIRUS 2 NOT DETECTED; PARAINFLUENZA VIRUS 3 NOT DETECTED; PARAINFLUENZA VIRUS 4 NOT DETECTED; RHINOVIRUS/ENTEROVIRUS NOT DETECTED; RSV- RESP PCR PANEL NOT DETECTED; SARS-CoV-2 -RESP PCR PANEL NOT DETECTED
[2022-09-02 17:42] LABS: CALCIUM 9.6 mg/dL (8.5-10.3); CREATININE 0.7 mg/dL (0.4-1.0)
[2022-09-02 18:27] VITALS: BP 116/71
== END 2022-09-02 18:26 | disposition home or self-care (01) ==
LOC: EDUNIT# → ED 14:58
DX: J45.901 Unspecified asthma with (acute) exacerbation (principal); J10.1 Influenza due to other identified influenza virus with other respiratory manifestations
CPT/HCPCS: 36415; 71046; 80048; 83735; 87633; 94640; 99284; A9270

== ENCOUNTER → 2022-09-17 | Outpatient (CLI) | payer MEDICAID | END | disposition left against medical advice (07) | LOC: EMS 03:16 | DX: S09.93XA Unspecified injury of face, initial encounter (principal); Y04.2XXA Assault by strike against or bumped into by another person, initial encounter ==

== ENCOUNTER 2023-07-13 10:21 | Emergency (ER) | payer MEDICARE, MEDICAID ==
[2023-07-13] MEDS ORDERED: lidocaine 1% 20 ML MDV SUBQ ONE (12:34)
--- NOTE | 2023-07-13 12:39 | ED Physician Documentation ---
History of Present Illness - Stated complaint Stated Complaint: RT THUMB PX/SWELLING - Chief complaint Chief Complaint: Ext Problem - Additonal information Additional information: 62-year-old female presents emergency department for evaluation of a right thumb infection. She developed a felon on her thumb and was seen at a local walk-in clinic on 03 July. She had an I&D in which she reports that they went through and through lateral and medial sides of the thumb. Packing was placed. She returned to the clinic on the and the packing was removed. She has been on doxycycline and finished her dose on Sunday. However since then she has had persistent swelling increased pain on the fat pad. No fevers. She is anticoagulated. 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: None : None HEENT: Other Psych: None Musculoskeletal: None Derm: None - Past Surgical History Past Surgical History: No General: Cholecystectomy /LAB ANIMAL TECHNOLOGIST: Tubal ligation Cardiovascular: Coronary stent, Valve replacement, AICD - Present Medications Home Medications: Ambulatory Orders Medication Instructions Recorded Confirmed Cetirizine [ZyrTEC] 10 mg PO DAILY 15 Days #15 tablet 11/27/21 Fluticasone Propionate 1 spray NS BID 20 Days #1 bottle 11/27/21 Meloxicam [Mobic] 7.5 mg PO BID 10 Days #20 tablet 11/27/21 oxyCODONE [Roxicodone] 5 mg PO Q6H PRN #15 tablet 11/27/21 Acetaminophen [Acetaminophen Extra 500 mg PO QID PRN #50 tablet 12/26/21 Strength] oxyCODONE [Roxicodone] 5 mg PO Q6H PRN #18 tablet 12/26/21 HYDROcod/ACETAM 5/325 [[place] 5/325] 1 - 2 tab PO Q6H PRN #15 tablet 02/23/22 Gabapentin [Neurontin] 300 mg PO TID #60 cap 08/02/22 Ondansetron Odt [Zofran] 4 mg TL Q6H PRN #30 tablet 08/02/22 Benzonatate [Tessalon] 100 mg PO TID PRN #20 cap 09/02/22 Ipratropium [Atrovent] 0.5 mg INH TID 10 Days #75 ml 09/02/22 dexAMETHasone [Decadron] 4 mg PO DAILY #7 tablet 09/02/22 Sulfamethox/Trimeth 800/160 1 each PO BID #14 tablet 07/13/23 [Bactrim Ds 800/160] cephALEXin [Keflex] 500 mg PO TID #21 cap 07/13/23 - Allergies Allergies/Adverse Reactions: Allergies Allergy/AdvReac Type Severity Reaction Status Date / Time dupilumab [From Dupixent Pen] Allergy Hallucinati Verified 07/13/23 10:39 ons iodine Allergy Anaphylaxis Verified 07/13/23 10:39 shellfish derived Allergy Anaphylaxis Verified 07/13/23 10:39 spironolactone Allergy Unknown Verified 07/13/23 10:39 - Social History Does the pt smoke?: No Smoking Status: Never smoker Does the pt drink ETOH?: No Does the pt have substance abuse?: No - Immunizations Immunizations are current?: Yes PD ED PE EXPANDED - Extremities Extremities: Right finger(s) (The fat pad of the right thumb is quite callused with old skin on it. When peeled away the underlying skin appears pink but quite tender with some purulent drainage.) Results - Vitals Vitals: Vital Signs - 24 hr 07/13/23 10:32 Temperature 36.7 C Heart Rate 68 Respiratory 15 Rate Blood Pressure 124/68 O2 Saturation 98 Oxygen O2 Source Room air Procedures - Abscess I&D (location) right thumb felon Preparation: Chlorhexadine Incision: Incised with scalpel, Purulent drainage, Culture obtained Other: Pt tolerated well, Antibiotic prescribed PD Medical Decision Making - ED course Complexity details: reviewed results, re-evaluated patient, d/w patient ED course: 62-year-old female presents emergency department for evaluation of a right thumb infection. Seen on 03 July at a walk-in clinic diagnosed with a felon, had a through and through incision and drainage placed on the distal thumb laterally and medially. Packing was removed 2 days later and she completed a course of Doxy. However once the packing was removed the wound closed up and has gotten persistently more painful. At the bedside we did reanesthetized the thumb and I did a vertical incision through the fat pad with a small amount of purulence drained. It was thoroughly irrigated. She will be placed on Keflex and Bactrim. A culture is pending but I expect that this at this point will be sufficient to allow proper drainage of the wound and allow the thumb to now heal. Usual emergent return precautions were discussed for worsening symptoms. Departure - Departure Disposition: 01 Home, Self Care Clinical Impression: Abscess of right thumb Condition: Stable Record reviewed to determine appropriate education?: Yes Instructions: ED Abscess IandD Prescriptions: Sulfamethox/Trimeth 800/160 [Bactrim Ds 800/160] 1 each PO BID #14 tablet cephALEXin [Keflex] 500 mg PO TID #21 cap Comments: Freda the initial incision from your drainage on 03 July had closed up. Unfortunately this allowed some residual infection to be trapped in the thumb. We did remove the hard skin and callus from the fat pad of your thumb and then did a vertical incision. A small amount of purulence was drained. I expect at this point this will allow the wound to properly heal. I have sent a prescription for Keflex and Bactrim to the [facility] in [place]. In general I want you to wash this thumb with warm soap and water twice daily and then apply antibiotic ointment. Place warm compress over the thumb for 10 minutes 2-3 times a day. With this I would expect improved pain and tenderness over the next several days. If not improving please return to the ER. Please discuss this ED visit with your primary care doctor. If its not healing as would expect in the long-term they may need to make a referral to a hand surgeon. Forms: PCP List
[2023-07-13 13:33] VITALS: BP 123/78; O2SAT 99
== END 2023-07-13 13:27 | disposition home or self-care (01) ==
LOC: ED 10:21
DX: L02.511 Cutaneous abscess of right hand (principal)
CPT/HCPCS: 10060; 87070; 87181; 87205

== ENCOUNTER 2023-08-08 09:14 | Outpatient (CLI) | payer MEDICARE, MEDICAID | END 2023-08-08 09:15 | disposition critical access hospital (66) | LOC: EMS 09:14 | DX: R07.89 Other chest pain (principal); M79.601 Pain in right arm; M54.9 Dorsalgia, unspecified; G89.29 Other chronic pain; I25.2 Old myocardial infarction; Z95.810 Presence of automatic (implantable) cardiac defibrillator | CPT/HCPCS: A0425; A0427 ==

== ENCOUNTER 2023-08-08 09:33 | Emergency (ER) | payer MEDICARE, MEDICAID ==
[2023-08-08 10:04] LABS: BASOPHILS % (AUTO) 0.4 %; EOSINOPHILS % (AUTO) 0.6 %; HCT - HEMATOCRIT 35.3 % (37.0-47.0); LYMPHOCYTES # (AUTO) 0.6 10^3/uL (1.5-3.5); LYMPHOCYTES % (AUTO) 9.2 %; MEAN CORPUSCULAR HEMOGLOBIN 30.7 pg (27.0-31.0); MEAN CORPUSCULAR VOLUME 90.3 fL (81.0-99.0); MEAN PLATELET VOLUME 9.8 fL (7.9-10.8); MONOCYTES # (AUTO) 0.5 10^3/uL (0.0-1.0); MONOCYTES % (AUTO) 7.1 %; NEUTROPHILS # (AUTO) 5.5 10^3/uL (1.5-6.6); NEUTROPHILS % (AUTO) 82.4 %; PLT - PLATELET COUNT 158 10^3/uL (130-450); RED BLOOD COUNT 3.91 10^6/uL (4.20-5.40); RED CELL DISTRIBUTION WIDTH 12.9 % (12.0-15.0); WHITE BLOOD COUNT 6.7 x10^3/uL (4.8-10.8)
--- NOTE | 2023-08-08 10:17 | XRAY Report ---
PROCEDURE: Chest 1 View X-Ray INDICATIONS: chest pain TECHNIQUE: One view of the chest was acquired. COMPARISON: None. FINDINGS: Surgical changes and devices: Left chest wall generator with intravenous leads. Prosthetic valve. St ernotomy. Lungs and pleura: No pleural effusions or pneumothorax. Lungs are clear. Mediastinum: Mediastinal contours appear normal. Heart size is normal. Bones and chest wall: No suspicious bony lesions. Overlying soft tissues appear unremarkable. IMPRESSION: No acute cardiopulmonary process. Reviewed by: Amos Hernandez on 08/08/2023 10:16 AM PDT Approved by: Amos Hernandez on 08/08/2023 10:16 AM PDT Station ID: [id number]
[2023-08-08] MEDS ORDERED: KETOROLAC 30 MG/ML VIAL IVP STA (10:24)
[2023-08-08] MEDS ORDERED: DEXAMETHASONE 10 MG/ML VIAL PO STA (10:24)
[2023-08-08] MEDS ORDERED: CHERRY SYRUP 10 ML UDC PO ONE (10:24)
[2023-08-08] MEDS ORDERED: SODIUM CHLORIDE 0.9% 1,000 ML IV STA (10:24)
[2023-08-08 10:30] LABS: ALBUMIN 4.5 g/dL (3.2-5.5); ALBUMIN/GLOBULIN RATIO 2.3 (1.0-2.2); BILIRUBIN,TOTAL 0.7 mg/dL (0.2-1.0); CREATININE 0.6 mg/dL (0.6-1.3); POTASSIUM 3.8 mmol/L (3.5-4.5); TOTAL PROTEIN 6.5 g/dL (6.4-8.9)
--- NOTE | 2023-08-08 10:40 | ED Physician Documentation ---
PD HPI CHEST PAIN - Stated complaint Stated Complaint: R ARM/BACK PX - Chief complaint Chief Complaint: Cardiac - History obtained from History obtained from: Patient - History of Present Illness Timing - onset: Yesterday Timing - onset during: Rest Timing - duration: Days (2) Timing - details: Abrupt onset, Still present Quality: Sharp, Pain Location: Left chest, Right chest Improved by: Rest Worsened by: Inspiration, Movement, Palpation, Position Associated symptoms: No: Shortness of air Similar symptoms before: Has not had sx before Recently seen: Not recently seen - Additional information Additional information: Freda Villalpando is a 63-year-old female who is physically deconditioned and 5 days ago she used a 3 pound weights to do some upper extremity exercises. This morning she awoke at 4:00 in the morning with pain all over especially in her right arm and chest. She is having worse pain if she takes a deep breath. She did get some diaphoresis associated with this. She has not had chest pain previously with her prior [place]. She has had 2 valves replaced. She is on Xarelto. She has a pacer defibrillator in place. She indicate she is not otherwise ill. Review of Systems Constitutional: denies: Fever Eyes: denies: Decreased vision Ears: denies: Ear pain Nose: denies: Congestion Throat: denies: Sore throat Cardiac: reports: Chest pain / pressure. 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 MANAGER CORPORATE COMMUNICATIONS: Tubal ligation Cardiovascular: Coronary stent, Valve replacement, AICD - Present Medications Home Medications: Ambulatory Orders Medication Instructions Recorded Confirmed Cetirizine [ZyrTEC] 10 mg PO DAILY 15 Days #15 tablet 11/27/21 Fluticasone Propionate 1 spray NS BID 20 Days #1 bottle 11/27/21 Meloxicam [Mobic] 7.5 mg PO BID 10 Days #20 tablet 11/27/21 oxyCODONE [Roxicodone] 5 mg PO Q6H PRN #15 tablet 11/27/21 Acetaminophen [Acetaminophen Extra 500 mg PO QID PRN #50 tablet 12/26/21 Strength] oxyCODONE [Roxicodone] 5 mg PO Q6H PRN #18 tablet 12/26/21 HYDROcod/ACETAM 5/325 [[place] 5/325] 1 - 2 tab PO Q6H PRN #15 tablet 02/23/22 Gabapentin [Neurontin] 300 mg PO TID #60 cap 08/02/22 Ondansetron Odt [Zofran] 4 mg TL Q6H PRN #30 tablet 08/02/22 Benzonatate [Tessalon] 100 mg PO TID PRN #20 cap 09/02/22 Ipratropium [Atrovent] 0.5 mg INH TID 10 Days #75 ml 09/02/22 dexAMETHasone [Decadron] 4 mg PO DAILY #7 tablet 09/02/22 Sulfamethox/Trimeth 800/160 1 each PO BID #14 tablet 07/13/23 [Bactrim Ds 800/160] cephALEXin [Keflex] 500 mg PO TID #21 cap 07/13/23 - Allergies Allergies/Adverse Reactions: Allergies Allergy/AdvReac Type Severity Reaction Status Date / Time dupilumab [From Comprehensive Care Pen] Allergy Hallucinati Verified 07/13/23 10:39 ons iodine Allergy Anaphylaxis Verified 07/13/23 10:39 shellfish derived Allergy Anaphylaxis Verified 07/13/23 10:39 spironolactone Allergy Unknown Verified 07/13/23 10:39 - Social History Does the pt smoke?: No Smoking Status: Never smoker Does the pt drink ETOH?: No Does the pt have substance abuse?: No - Immunizations Immunizations are current?: Yes - POLST Patient has POLST: No PD ED PE NORMAL - Vitals Vital signs reviewed: Yes (normal ) - General General: Alert and oriented X 3, No acute distress, Well developed/nourished, Other (flat affect) - HEENT HEENT: Atraumatic, PERRL, EOMI - Neck Neck: Supple, no meningeal sign, No bony TTP - Cardiac Cardiac: RRR, No murmur - Respiratory Respiratory: No respiratory distress, Clear bilaterally - Abdomen Abdomen: Soft, Non tender - Back Back: No CVA TTP, No spinal TTP - Derm Derm: Normal color, Warm and dry, No rash - Extremities Extremities: No deformity, No edema - Neuro Neuro: Alert and oriented X 3, dance therapist 2-12 intact, No motor deficit, No sensory deficit, Normal speech Eye Opening: Spontaneous Motor: Obeys Commands Verbal: Oriented GCS Score: 15 - Psych Psych: Normal mood Results - Vitals Vitals: Vital Signs - 24 hr 08/08/23 08/08/23 09:52 11:47 Temperature 36.9 C 36.1 C L Heart Rate 99 89 Respiratory 12 14 Rate Blood Pressure 98/61 85/57 L O2 Saturation 96 98 Oxygen O2 Source Room air - EKG (time done) 1012 EKG releavant findings:: EKG personally interpreted by author of this note. Relevant findings are: Rate: Rate (enter#) (97) Rhythm: Paced Compare to prior EKG: Old EKG unavailable Computer interpretation: Agree with computer - Labs Labs: Laboratory Tests 08/08/23 08/08/23 10:00 10:00 WBC 6.7 RBC 3.91 L Hgb 12.0 Hct 35.3 L MCV 90.3 MCH 30.7 MCHC 34.0 RDW 12.9 Plt Count 158 MPV 9.8 Neut # (Auto) 5.5 Lymph # (Auto) 0.6 L [place] # (Auto) 0.5 Eos # (Auto) 0.0 Baso # (Auto) 0.0 Absolute Nucleated RBC 0.00 Nucleated RBC % 0.0 Sodium 129 L Potassium 3.8 Chloride 96 L Carbon Dioxide 26 Anion Gap 7.0 BUN 14 Creatinine 0.6 Estimated GFR (MDRD) 101 Glucose 125 H Calcium 9.0 Total Bilirubin 0.7 AST 18 ALT 24 Alkaline Phosphatase 44 Troponin I High Sens 11.0 Total Protein 6.5 Albumin 4.5 Globulin 2.0 L Albumin/Globulin Ratio 2.3 H Lipase 11 - Rads (name of study) chest Relevant Findings:: Prelim report reviewed (Impression: No acute cardiopulmonary process.), EMP independent interpretation of test (The lungs on this picture are dry), See rad report Procedures - IVC sono (time) 1020 Bedside IVC sono: IVC measures (cm) (0.89), IVC collapsed c insp (cm) (compl ete), Dehydration (est 2 liter deficit) PD Medical Decision Making - ED course Complexity details: reviewed old records, reviewed results, re-evaluated patient, considered differential, d/w patient Reviewed Lab Results: We reviewed a complete blood count showing a normal white blood cell count hemoglobin was 12 hematocrit was 35.3 in comparison to prior of 37.2 platelets are normal chemistries show a sodium low at 129 similar to what patient has had previously kidney function is normal liver function normal high-sensitivity troponin normal at 11.0. These laboratory tests do not contribute significantly to a specific diagnosis they do assist in ruling out an acute coronary syndrome as a reason for chest wall pain ED course: We evaluated this patient for evidence of coronary disease that included a picture of her chest and this x-ray appeared to have very little lung markings and it consistent with dehydration. I interrogated the IVC with POCUS and found she had about a 2 L deficit. She does have pain to her anterior chest wall that reproduces the symptoms she is having and she does have a history consistent with a remote injury from mild weightlifting. Today she is administered dexamethasone and Toradol as well as a liter of fluid. Her troponin is negative and I do not believe the incident or the pain in her chest has anything to do with her heart. Departure - Departure Disposition: 01 Home, Self Care Clinical Impression: Chest wall pain Condition: Stable Instructions: ED Strain Chest Wall Follow-Up: Manoj Willson [Physician No Access] - Comments: Freda, today looks like you have a chest wall strain causing your pain and we have given you some Toradol and dexamethasone and this should help with your pain today. My recommendation is to use the oxycodone you have and ibuprofen for control of the pain and make certain you take the ibuprofen with food. Discharge Date/Time: 08/08/23 12:07
[2023-08-08 11:56] VITALS: BP 85/57; O2SAT 98
== END 2023-08-08 12:07 | disposition home or self-care (01) ==
LOC: EDUNIT# → ED 09:33
DX: R07.89 Other chest pain (principal)
CPT/HCPCS: 36415; 71045; 80053; 83690; 84484; 85025; 93005; 96361; 96374; 99284; A9270

== ENCOUNTER 2024-01-20 13:31 | Emergency (ER) | payer MEDICAID, MEDICARE ==
[2024-01-20 14:18] VITALS: BP 131/73; O2SAT 100
--- NOTE | 2024-01-20 15:05 | ED Physician Documentation ---
PD HPI HEENT - Stated complaint Stated Complaint: CANT HEAR LT EAR - Chief complaint Chief Complaint: Heent - History obtained from History obtained from: Patient - History of Present Illness Timing - onset: Today Timing - duration: Days (1) Timing - details: Gradual onset Pain level max: 2 Pain level now: 2 Location: Left ear Associated symptoms: No: Fever, Congestion, Rhinorrhea, Trismus, Headache, Cough Recently seen: Not recently seen - Additional information Additional information: Patient is a 63-year-old female who states that she feels like her left ear was clogged so she put alcohol into her ear and then followed up by hydrogen peroxide and a Q-tip. She states she noted bleeding from the ear and decided to come in for evaluation. No fevers. No chills. No redness. No swelling. No active bleeding currently. 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 : None HEENT: None, Other Psych: None Musculoskeletal: None Derm: None - Past Surgical History Past Surgical History: No General: Cholecystectomy /HOUSE CALLS NURSE PRACTITIONER: Tubal ligation Cardiovascular: Coronary stent, Valve replacement, AICD - Present Medications Home Medications: Ambulatory Orders Medication Instructions Recorded Confirmed Cetirizine [ZyrTEC] 10 mg PO DAILY 15 Days #15 tablet 11/27/21 Fluticasone Propionate 1 spray NS BID 20 Days #1 bottle 11/27/21 Meloxicam [Mobic] 7.5 mg PO BID 10 Days #20 tablet 11/27/21 oxyCODONE [Roxicodone] 5 mg PO Q6H PRN #15 tablet 11/27/21 Acetaminophen [Acetaminophen Extra 500 mg PO QID PRN #50 tablet 12/26/21 Strength] oxyCODONE [Roxicodone] 5 mg PO Q6H PRN #18 tablet 12/26/21 HYDROcod/ACETAM 5/325 [[place] 5/325] 1 - 2 tab PO Q6H PRN #15 tablet 02/23/22 Gabapentin [Neurontin] 300 mg PO TID #60 cap 10/26/22 Ondansetron Odt [Zofran] 4 mg TL Q6H PRN #30 tablet 08/02/22 Benzonatate [Tessalon] 100 mg PO TID PRN #20 cap 09/02/22 Ipratropium [Atrovent] 0.5 mg INH TID 10 Days #75 ml 09/02/22 dexAMETHasone [Decadron] 4 mg PO DAILY #7 tablet 09/02/22 Sulfamethox/Trimeth 800/160 1 each PO BID #14 tablet 07/13/23 [Bactrim Ds 800/160] cephALEXin [Keflex] 500 mg PO TID #21 cap 07/13/23 Neomycin/Polymyx/Hc Otic Drops 4 drops LEFTEAR TID #10 ml 01/20/24 [Cortisporin Ear Susp] - Allergies Allergies/Adverse Reactions: Allergies Allergy/AdvReac Type Severity Reaction Status Date / Time dupilumab [From Dupixent Pen] Allergy Hallucinati Verified 01/20/24 15:14 ons iodine Allergy Anaphylaxis Verified 01/20/24 15:14 shellfish derived Allergy Anaphylaxis Verified 01/20/24 15:14 spironolactone Allergy Unknown Verified 01/20/24 15:14 - Social History Does the pt smoke?: No Smoking Status: Never smoker Does the pt drink ETOH?: No Does the pt have substance abuse?: No - Immunizations Immunizations are current?: Yes - POLST Patient has POLST: No PD ED PE NORMAL - Vitals Vital signs reviewed: Yes - General General: Alert and oriented X 3, No acute distress - HEENT HEENT: Moist mucous membranes, Other (L ear - yellow/white discharge with sligh bleeding. TM obscured. ) - Neck Neck: Supple, no meningeal sign - Respiratory Respiratory: No respiratory distress - Derm Derm: Warm and dry - Neuro Neuro: Alert and oriented X 3 Results - Vitals Vitals: Vital Signs - 24 hr 01/20/24 13:56 Temperature 35.8 C L Heart Rate 58 L Respiratory 18 Rate Blood Pressure 131/73 H O2 Saturation 100 Oxygen O2 Source Room air PD Medical Decision Making - ED course Complexity details: considered differential, d/w patient ED course: 63-year-old female with a left acute otitis externa. Will place on Cortisporin otic. Unable to clearly visualize the tympanic membrane. Patient was informed not to place any other medication, fluids or Q-tips in the ear. No evidence of mastoiditis. No facial cellulitis. Patient counseled regarding signs and symptoms for which I believe and urgent re-evaluation would be necessary. Patient with good understanding of and agreement to plan and is comfortable going home at this time This document was made in part using voice recognition software. While efforts are made to proofread this document, sound alike and grammatical errors may occur. Departure - Departure Disposition: Home, Self Care Clinical Impression: Otitis externa, left Qualifiers: Otitis externa type: unspecified type Chronicity: acute Qualified Code(s): H60.502 - Unspecified acute noninfective otitis externa, left ear Condition: Good Instructions: ED Otitis Externa Follow-Up: GARCÍA PEREIRA MD [Primary Care Provider] - Within 1 week Prescriptions: Neomycin/Polymyx/Hc Otic Drops [Cortisporin Ear Susp] 4 drops LEFTEAR TID #10 ml Comments: Your prescriptions were sent to [facility] in [place]. Use the eardrops as prescribed. Follow-up with your doctor in 1 week for a recheck of your ear. Please do not put anything else in your ear. Please return if you worsen. Forms: PCP List Discharge Date/Time: 01/20/24 15:15
== END 2024-01-20 15:15 | disposition home or self-care (01) ==
LOC: ED 13:31
DX: H60.502 Unspecified acute noninfective otitis externa, left ear (principal); I10 Essential (primary) hypertension
CPT/HCPCS: 99282; 99283

== ENCOUNTER 2024-02-10 14:28 | Emergency (ER) | payer MEDICARE ==
--- NOTE | 2024-02-10 14:52 | ED Physician Documentation ---
PD HPI CHEST PAIN - Stated complaint Stated Complaint: CHEST PX - Chief complaint Chief Complaint: Cardiac - History obtained from History obtained from: Patient - Additional information Additional information: She has a history of PA with stents in place and also an AICD because "her heart was playing ping-pong." Last night while shopping she had a 7-minute episode of sharp anterior nonradiating chest pain. Has not had pain since. Denies pedal edema, calf pain, shortness of breath, dizziness. 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 : None HEENT: None, Other Psych: None Musculoskeletal: None Derm: None - Past Surgical History Past Surgical History: No General: Cholecystectomy /SOCIAL WELFARE RESEARCH WORKER: Tubal ligation Cardiovascular: Coronary stent, Valve replacement, AICD - Present Medications Home Medications: Ambulatory Orders Medication Instructions Recorded Confirmed Cetirizine [ZyrTEC] 10 mg PO DAILY 15 Days #15 tablet 11/27/21 02/10/24 Acetaminophen [Acetaminophen Extra 500 mg PO QID PRN #50 tablet 12/26/21 02/10/24 Strength] Ipratropium [Atrovent] 0.5 mg INH TID 10 Days #75 ml 09/02/22 02/10/24 ALPRAZolam [Xanax] 1 tab PO PRN PRN 02/10/24 02/10/24 Budesonide/Formoterol Fumarate 1 inh INH PRN PRN 02/10/24 02/10/24 [Symbicort 80-4.5 Mcg Inhaler] Denosumab [Prolia] 1 applic SUBQ 02/10/24 Metoprolol Succinate [Toprol Xl] 1 tab PO DAILY 02/10/24 02/10/24 Rivaroxaban [Xarelto] 1 tab PO DAILY 02/10/24 02/10/24 Rosuvastatin Calcium [Crestor] 1 tab PO DAILY 02/10/24 02/10/24 Valsartan [Diovan] 1 tab PO DAILY 02/10/24 02/10/24 oxyCODONE [Roxicodone] 5 mg PO Q8HR PRN 02/10/24 02/10/24 - Allergies Allergies/Adverse Reactions: Allergies Allergy/AdvReac Type Severity Reaction Status Date / Time dupilumab [From Dupixent Pen] Allergy Hallucinati Verified 02/10/24 14:32 ons iodine Allergy Anaphylaxis Verified 02/10/24 14:32 shellfish derived Allergy Anaphylaxis Verified 02/10/24 14:32 spironolactone Allergy Unknown Verified 02/10/24 14:32 - Social History Does the pt smoke?: No Smoking Status: Former smoker Does the pt drink ETOH?: No Does the pt have substance abuse?: No - Immunizations Immunizations are current?: Yes - POLST Patient has POLST: No PD ED PE NORMAL - Vitals Vital signs reviewed: Yes - General General: Alert and oriented X 3, No acute distress - HEENT HEENT: PERRL, EOMI - Neck Neck: Supple, no meningeal sign, No bony TTP - Cardiac Cardiac: RRR, No murmur, Other (Paced on the monitor) - Respiratory Respiratory: No respiratory distress, Clear bilaterally - Abdomen Abdomen: Non tender - Extremities Extremities: No edema, No calf tenderness / cord - Neuro Neuro: Alert and oriented X 3 Results - Vitals Vitals: Vital Signs - 24 hr 02/10/24 02/10/24 02/10/24 14:32 14:43 16:39 Temperature 36.1 C L Heart Rate 69 60 Respiratory 16 16 Rate Blood Pressure 144/85 H 159/98 H Blood Pressure 139/88 H [Right] O2 Saturation 100 93 Oxygen O2 Source Room air - EKG (time done) 1446 EKG releavant findings:: EKG personally interpreted by author of this note. Relevant findings are: Rate: Rate (enter#) (70) Rhythm: Paced - Labs Labs: Laboratory Tests 02/10/24 02/10/24 02/10/24 15:05 15:05 17:00 WBC 3.4 L RBC 4.21 Hgb 12.5 Hct 38.4 MCV 91.2 MCH 29.7 MCHC 32.6 RDW 13.2 Plt Count 194 MPV 10.4 Neut # (Auto) 1.4 L Lymph # (Auto) 1.3 L Graham # (Auto) 0.4 Eos # (Auto) 0.2 Baso # (Auto) 0.0 Absolute Nucleated RBC 0.00 Nucleated RBC % 0.0 Sodium 137 Potassium 4.0 Chloride 104 Carbon Dioxide 26 Anion Gap 7.0 BUN 6 Creatinine 0.7 Estimated GFR (MDRD) 85 L Glucose 105 H Calcium 10.2 Total Bilirubin 0.6 AST 23 ALT 26 Alkaline Phosphatase 42 Troponin I High Sens 354.5 H* 341.6 H* Total Protein 6.9 Albumin 4.6 Globulin 2.3 Albumin/Globulin Ratio 2.0 Lipase 10 L - Rads (name of study) Single view chest showing extensive postoperative changes but no acute disease. Relevant Findings:: Final report received, EMP independent interpretation of test PD Medical Decision Making - ED course ED course: 7-minute episode of resolved chest pain, this was about 20 hours ago. Her EKG is not ischemic and she is pain-free now. She is high risk though with a history of coronary disease and AICD in place for unclear reasons per her history. 63-year-old woman with a resolved episode of chest pain last night. She is in a paced rhythm without obvious ischemic changes on EKG and she is pain-free here. That said, lab work is notable for normal CBC and CMP with elevated troponin. 1 might wonder, given her underlying heart disease if she has a chronically elevated troponin, but she was seen for chest pain in August of last year with a normal troponin. Given the positive troponin we will call [facility] for consultation. On further history after discussion of this, she admits that she is actually had 3 episodes of pain in the last week including an episode of completely rest pain while in bed several days ago. Case presented to Dr. Paul Zimmerman at approximately 4:50 PM. He agrees with transfer. Recommends heparin drip which will order without bolus given that she is on Xarelto but has not taken it since last night. Patient updated and she continues to be pain-free and without specific complaint. After discussing with the filling carrier the transfer center [place] is going to connect me to a hospitalist. Accepted by Rakan Thompson, hospitalist in [place] at 5:18 PM. [place]ras are completed and she is stable for transport. Dr. Thompson was looking at the chart as we spoke and confirmed that the reason for the AICD was cardiomyopathy with an EF of 25%. Her second troponin was trending down a bit which is probably not unexpected si nce her most recent pain episode was yesterday evening. Departure - Departure Disposition: 02 Transfer Acute Care Hosp Clinical Impression: Unstable angina, Ischemic cardiomyopathy with implantable cardioverter- defibrillator (ICD) Condition: Serious Forms: PCP List
[2024-02-10 15:12] LABS: BASOPHILS % (AUTO) 0.9 %; EOSINOPHILS # (AUTO) 0.2 10^3/uL (0.0-0.7); EOSINOPHILS % (AUTO) 5.3 %; HCT - HEMATOCRIT 38.4 % (37.0-47.0); HGB - HEMOGLOBIN 12.5 g/dL (12.0-16.0); LYMPHOCYTES # (AUTO) 1.3 10^3/uL (1.5-3.5); LYMPHOCYTES % (AUTO) 39.3 %; MEAN CORPUSCULAR HEMOGLOBIN 29.7 pg (27.0-31.0); MEAN CORPUSCULAR HGB CONC 32.6 g/dL (32.0-36.0); MEAN CORPUSCULAR VOLUME 91.2 fL (81.0-99.0); MEAN PLATELET VOLUME 10.4 fL (7.9-10.8); MONOCYTES # (AUTO) 0.4 10^3/uL (0.0-1.0); MONOCYTES % (AUTO) 11.8 %; NEUTROPHILS # (AUTO) 1.4 10^3/uL (1.5-6.6); NEUTROPHILS % (AUTO) 42.7 %; PLT - PLATELET COUNT 194 10^3/uL (130-450); RED BLOOD COUNT 4.21 10^6/uL (4.20-5.40); RED CELL DISTRIBUTION WIDTH 13.2 % (12.0-15.0); WHITE BLOOD COUNT 3.4 x10^3/uL (4.8-10.8)
--- NOTE | 2024-02-10 15:27 | XRAY Report ---
PROCEDURE: Chest 1V INDICATIONS: Chest Pain TECHNIQUE: One view of the chest was acquired. COMPARISON: 08/08/2023, 09/02/2022. Correlation is made with CT, 02/23/2022 FINDINGS: Surgical changes and devices: An AICD can be seen. These imaging findings are stable compared to t he prior examination. Sternotomy changes are noted. There is a mitral valve annulus prosthesis seen . Upper abdominal postoperative changes are seen. Lungs and pleura: No pleural effusions or pneumothorax. Lungs are clear. Mediastinum: Mediastinal contours appear normal. Heart size is normal. Bones and chest wall: No suspicious bony lesions. Age-appropriate degenerative changes are seen. Overlying soft tissues appear unremarkable. IMPRESSION: Portable chest within normal limits for age. Extensive postoperative change is seen. Reviewed by: Isaias Kenney MD on 02/10/2024 2:26 PM ANABELLA Approved by: Isaias Kenney MD on 02/10/2024 2:26 PM ANABELLA Station ID: [id number]
[2024-02-10 15:33] LABS: ALBUMIN 4.6 g/dL (3.2-5.5); BILIRUBIN,TOTAL 0.6 mg/dL (0.2-1.0); CALCIUM 10.2 mg/dL (8.5-10.3); CREATININE 0.7 mg/dL (0.6-1.3); TOTAL PROTEIN 6.9 g/dL (6.4-8.9)
[2024-02-10 15:41] LABS: TROPONIN I HIGH SENSITIVITY 354.5 ng/L (2.3-14.8)
[2024-02-10] MEDS: METOPROLOL TARTRATE 25 MG TABLET PO STA (15:59)
[2024-02-10] MEDS: ASPIRIN CHEW 81 MG TABLET PO STA (15:59)
[2024-02-10] MEDS: ATORVASTATIN 40 MG TABLET PO STA (16:23)
[2024-02-10] MEDS: LORazepam 2 MG/ML VIAL IVP STA (16:23)
[2024-02-10 16:47] VITALS: BP 159/98; O2SAT 93
[2024-02-10] MEDS: HEPARIN 25000UNITS/500ML (D5W) 25,000 UNIT/500 ML BAG IV SCH (17:02)
== END 2024-02-10 17:52 | disposition short-term general hospital (02) ==
LOC: ED 14:28
DX: I20.0 Unstable angina (principal); I25.5 Ischemic cardiomyopathy; Z95.810 Presence of automatic (implantable) cardiac defibrillator; Z95.5 Presence of coronary angioplasty implant and graft; Z79.01 Long term (current) use of anticoagulants; Z95.2 Presence of prosthetic heart valve; I11.0 Hypertensive heart disease with heart failure; I50.9 Heart failure, unspecified; Z87.891 Personal history of nicotine dependence
CPT/HCPCS: 36415; 71045; 80053; 83690; 84484; 85025; 93005; 96374; 96375; 99285; A9270; J2060

== ENCOUNTER 2024-02-10 17:51 | Outpatient (CLI) | payer MEDICARE | END 2024-02-10 23:59 | disposition short-term general hospital (02) | LOC: EMS 17:51 | PROVIDERS: ATTEND Emergency Medicine | DX: I20.0 Unstable angina (principal) | CPT/HCPCS: A0425; A0426 ==